=== PATIENT | female | born 1980 | race Caucasian/White ===

== ENCOUNTER 2017-12-13 02:54 | Emergency (ER) | payer SELFPAY ==
[2017-12-13 03:01] VITALS: BP 135/93
[2017-12-13] MEDS ORDERED: LIDOCAINE 1%/EPINEPHRINE INJ 20 ML VIAL INJ ONE (03:18)
[2017-12-13] MEDS ORDERED: LIDOCAINE 4%/TETRACAINE 0.5%/EPI 0.18% 5 ML TOPICAL SOLN TOP ONE (03:19)
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
== END 2017-12-13 06:15 | disposition home or self-care (01) ==
LOC: ER 02:54
DX: S09.90XA Unspecified injury of head, initial encounter (principal); S01.81XA Laceration without foreign body of other part of head, initial encounter; Y00.XXXA Assault by blunt object, initial encounter; F17.200 Nicotine dependence, unspecified, uncomplicated
CPT/HCPCS: 99284; 70450; 72125; L0120; J3490 ×2